=== PATIENT | male | born 1935 | race Caucasian/White ===

== ENCOUNTER 2017-03-24 11:20 | Emergency (ER) | payer MEDICARE, OTHER ==
[2017-03-24] MEDS ORDERED: NS 0.9% 1000 ML* 2,000 ML IV ONE (12:00)
[2017-03-24 12:26] LABS: Hematocrit 49 % (42-52); Hemoglobin 16.3 g/dl (14.0-18.0); Mean Corpuscular HGB Conc 34 g/dl (31-36); Mean Corpuscular Hemoglobin 30 pg (27-31); Mean Corpuscular Volume 89 fL (80-94); Mean Platelet Volume 9 um3 (7.4-10.4); Red Blood Count 5.44 10^6/ul (4.0-5.4); Red Cell Distribution Width 13 % (10.5-15); White Blood Count 4.7 10^3/ul (3.5-10.8)
[2017-03-24 12:44] LABS: ALT 16 U/L (7-52); AST 15 U/L (13-39); Albumin 4.1 g/dL (3.2-5.2); Alkaline Phosphatase 89 U/L (34-104); Anion Gap 5 mmol/L (2-11); BUN/Creatinine Ratio 18.5 (8-20); Blood Urea Nitrogen 20 mg/dL (6-24); CO2 Carbon Dioxide 30 mmol/L (22-32); Calcium 9.4 mg/dL (8.6-10.3); Chloride 104 mmol/L (101-111); EGFR African American 84.2 (>60); EGFR Non-African American 65.5 (>60); Globulin 2.4 g/dL (2-4); Glucose 119 mg/dL (70-100); Potassium 4.1 mmol/L (3.5-5.0); Sodium 139 mmol/L (133-145); Total Protein 6.5 g/dL (6.4-8.9)
[2017-03-24 12:56] LABS: Urine Bilirubin Negative (Negative); Urine Glucose Negative (Negative); Urine Nitrite Negative (Negative)
[2017-03-24] MEDS ORDERED: Iohexol 350* (CONTRAST) 500 ML MDV IV ONE (12:57)
[2017-03-24 13:00] LABS: Alcohol < 10 mg/dL (<10)
[2017-03-24 13:12] LABS: Cholesterol 109 mg/dL; HDL Cholesterol 32.5 mg/dL; LDL Cholesterol 46 mg/dL; Triglycerides 154 mg/dL
[2017-03-24] MEDS ORDERED: Metoprolol Tartrate IV* 1 MG/ML 5 ML VIAL IV ONE (13:31)
--- NOTE | 2017-03-24 13:41 | RAD ---
INDICATION: Dizziness, blurred vision and near syncope. COMPARISON: None. TECHNIQUE: Contiguous axial sections of the brain were obtained from the skull base to the vertex without contrast. FINDINGS: The ventricles, cisterns and sulci age-appropriate symmetric involutional changes. There is mild periventricular and subcortical white matter hypoattenuation. Otherwise the gastelum-white matter differentiation is adequately maintained and there is no sulcal effacement. No significant focal abnormality or mass effect is present. There is no evidence for intracranial hemorrhage. No significant focal osseous abnormality is present. The visualized portion of the paranasal sinuses and mastoid air cells appear clear. IMPRESSION: Age-appropriate involutional changes and microvascular disease without CT evidence of acute intracranial abnormality.
--- NOTE | 2017-03-24 13:57 | RAD ---
CPT II: CPT II Codes: 3100F INDICATION: Dizziness, blurred vision and ataxia COMPARISON: Same day CT of the brain that does not show any acute abnormalities. TECHNIQUE: A CT angiogram of the head and neck was performed with 80 cc of Omnipaque 350. Contiguous axial sections were obtained from the thoracic inlet through the [place]. Images were reconstructed in the sagittal, coronal planes and in a 3-D volume rendered format. The distal cervical internal carotid artery diameter is used as the denominater for stenosis measurement. CTA NECK: Right: Just below the bifurcation the common carotid artery measures 9 mm in diameter. There is coarse calcification at the proximal portion of the right internal carotid artery narrowing the lumen to 7 mm. This yields approximately 22% degree stenosis. Significant ectatic change at the proximal internal carotid artery is noted as well. Left: Just below the bifurcation the common carotid artery measures 8 mm. There is calcified atherosclerosis at the carotid bulb and the proximal internal carotid artery measures 6 mm in diameter. This corresponds to approximately 25% degree stenosis. Similar to the right there is ectatic curvature of the proximal portion of the left internal carotid artery. The left vertebral artery is diminutive relative to the right side patency is maintained up to the confluence with the basilar artery. Multilevel degenerative changes of the cervical spine include nonspecific straightening of the normal cervical lordosis, loss of intervertebral disc height, marginal osteophyte formation and uncovertebral hypertrophy. CTA of the brain: The internal carotid, anterior and middle cerebral arteries appear are patent without high grade stenosis or occlusion. The vertebral, basilar and posterior cerebral arteries appear patent without high grade stenosis or occlusion. The [place] is complete with bilateral posterior communicating arteries identified. No focal luminal filling defect, aneurysm or vascular malformation is seen. IMPRESSION: 1. 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 2. No abrupt filling defect or other acute intracranial arterial abnormality.
[2017-03-24 14:04] VITALS: BP 144/79
--- NOTE | 2017-03-24 18:38 | ED ---
I, Oh,Soohyun, scribed for Gurpreet Narayan MD on 03/24/17 at 1151 . Altered Mental Status - HPI Summary HPI Summary: This 82 y/o male presnets ot ED for intermittent confusion and increased disorientation since this morning 1000 AM. He was working on some project around the house at time of onset when he started "feeling whoozy" and increased confusion/disorientation. He reports trouble finding stuffs, remembering his tasks, and low word finding. Positive tinnitus bilat. Negative focal weakness. Pt denies room-spinning dizziness but states that he is feeling "whoozy" and near syncope. Pt decided to visit ED when he became concerned about possible memory issues. PMHx includes HTN, CAD, and PVC. Pt is currently on atenolol. Priamry care involves Dr. Kerr. - History Of Current Complaint Chief Complaint: EDAltMentalStatus Stated Complaint: DISDORIENTED, CONFUSED Time Seen by Provider: 03/24/17 11:34 Hx Obtained From: Patient, Medical Records Onset/Duration: Still Present - Allergies/Home Medications Allergies/Adverse Reactions: Allergies Allergy/AdvReac Type Severity Reaction Status Date / Time Bee Venom Allergy Swelling Verified 03/24/17 11:24 Of Face,Lips,& Throat PMH/Surg Hx/FS Hx/Imm Hx Cardiovascular History: Reports: Hx Angina - 1995-ANGIOGRAM/CENTRAL CORONARY ARTERY CLOGGED PER PT, Hx Coronary Artery Disease, Hx Hypertension - ON MEDICATION FOR, Other Cardiovascular Problems/Disorders - HISTORY OF A SKIPPED HEART BEAT GI History: Reports: Other GI Disorders - RECTAL FISTULA Musculoskeletal History: Reports: Hx Arthritis - SHOULDERS, RIGHT KNEE, Other Musculoskeletal History - RT KNEE DISCOMFORT R/T PRIOR INJURY Sensory History: Reports: Hx Cataracts - BILATERAL, Hx Contacts or Glasses - GLASSES Denies: Hx Hearing Aid Opthamlomology History: Reports: Hx Cataracts - BILATERAL, Hx Contacts or Glasses - GLASSES Psychiatric History: Reports: Hx Anxiety - NO MEDICATION FOR - Surgical History Surgery Procedure, Year, and Place: TONSILLECTOMY/CHILD. APPENDECTOMY. UMBILICAL HERNIA REPAIR/10 YRS AGO. CYST REMOVED( IN MD OFFICE). COLONOSCOPY Hx Anesthesia Reactions: No Infectious Disease History: No Infectious Disease History: Denies: Traveled Outside the [place] in Last 30 Days - Family History Known Family History: Negative: Other - negative malignant hyperthermia and adverse anesthesia reaction - Social History Alcohol Use: Occasionally Alcohol Amount: 1 BEER/WINE Q 2WKS Hx Substance Use: No Substance Use Type: Reports: None Hx Tobacco Use: No Smoking Status (MU): Never Smoked Tobacco Review of Systems Negative: Fever Positive: Other - Tinnitus Negative: Palpitations Neurological: Other - Positive for increased confusion and disorientation this morning. Positive: Syncope - near syncope. Negative: Headache All Other Systems Reviewed And Are Negative: Yes Physical Exam - Summary Physical Exam Summary: The patient is well-nourished in no acute distress and in no acute pain. The skin is warm and dry and skin color reflects adequate perfusion. HEENT: The head is normocephalic and atraumatic. The pupils are equal and reactive. The conjunctivae are clear and without drainage. Nares are patent and without drainage. Mouth reveals moist mucous membranes and the throat is without erythema and exudate. Neck is supple with full range of motion and non-tender. There are no carotid bruits. There is no neck vein distension. Respiratory: Chest is non-tender. Lungs are clear to auscultation and breath sounds are symmetrical and equal. Cardiovascular: Heart is regular rate and rhythm. There is no murmur or rub auscultated. There is no peripheral edema and pulses are symmetrical and equal. Abdomen: The abdomen is soft and non-tender. There are normal bowel sounds heard in all four quadrants and there is no organomegaly palpated. Musculoskeletal: There is no back pain noted. Extremities are non-tender with full range of motion. There is good capillary refill. There is no peripheral edema or calf tenderness elicited. no pitting edema. Neurological: Patient is alert and oriented to person, place and time. The patient has symmetrical motor strength in all four extremities. No focal weakness. Cranial nerves III-XII are grossly intact. Deep tendon reflexes are symmetrical and equal in bilat patella. Horizontal nyagtamus. No facial droops. No focal sensory. No pronatory driftt. Good urias to ankle. Normal finger to nose. visual field intact. No slurred speech. Psychiatric: The patient has an appropriate affect and does not exhibit any anxiety or depression. Triage Information Reviewed: Yes Vital Signs On Initial Exam: Initial Vitals Temp Pulse Resp BP Pulse Ox 98.1 F 60 16 169/85 99 03/24/17 11:27 03/24/17 11:27 03/24/17 11:27 03/24/17 11:27 03/24/17 11:27 Vital Signs Reviewed: Yes Diagnostics - Vital Signs Vital Signs Temp Pulse Resp BP Pulse Ox 03/24/17 11:27 98.1 F 60 16 169/85 99 - Laboratory Lab Results: Lab Results 03/24/17 03/24/17 03/24/17 Range/Units 12:20 12:20 12:20 WBC 4.7 (3.5-10.8) 10^3/ul RBC 5.44 H (4.0-5.4) 10^6/ul Hgb 16.3 (14.0-18.0) g/dl Hct 49 (42-52) % MCV 89 (80-94) fL MCH 30 (27-31) pg MCHC 34 (31-36) g/dl RDW 13 (10.5-15) % Plt Count 125 L (150-450) 10^3/ul MPV 9 (7.4-10.4) um3 Neut % (Auto) 60.8 (38-83) % Lymph % (Auto) 28.1 (25-47) % [place] % (Auto) 9.2 H (1-9) % Eos % (Auto) 1.5 (0-6) % Baso % (Auto) 0.4 (0-2) % Absolute Neuts (auto) 2.9 (1.5-7.7) 10^3/ul Absolute Lymphs (auto) 1.3 (1.0-4.8) 10^3/ul Absolute Monos (auto) 0.4 (0-0.8) 10^3/ul Absolute Eos (auto) 0.1 (0-0.6) 10^3/ul Absolute Basos (auto) 0 (0-0.2) 10^3/ul Absolute Nucleated RBC 0 10^3/ul Nucleated RBC % 0.1 INR (Anticoag Therapy) 0.93 (0.89-1.11) Sodium 139 (133-145) mmol/L Potassium 4.1 (3.5-5.0) mmol/L Chloride 104 (101-111) mmol/L Carbon Dioxide 30 (22-32) mmol/L Anion Gap 5 (2-11) mmol/L BUN 20 (6-24) mg/dL Creatinine 1.08 (0.67-1.17) mg/dL Est GFR ( Amer) 84.2 (>60) Est GFR (Non-Af Amer) 65.5 (>60) BUN/Creatinine Ratio 18.5 (8-20) Glucose 119 H (70-100) mg/dL Lactic Acid (0.5-2.0) mmol/L Calcium 9.4 (8.6-10.3) mg/dL Total Bilirubin 1.30 H (0.2-1.0) mg/dL AST 15 (13-39) U/L ALT 16 (7-52) U/L Alkaline Phosphatase 89 (34-104) U/L Troponin I 0.00 (<0.04) ng/mL Total Protein 6.5 (6.4-8.9) g/dL Albumin 4.1 (3.2-5.2) g/dL Globulin 2.4 (2-4) g/dL Albumin/Globulin Ratio 1.7 (1-3) Triglycerides 154 mg/dL Cholesterol 109 mg/dL LDL Cholesterol 46 mg/dL HDL Cholesterol 32.5 mg/dL Urine Color Urine Appearance Urine pH (5-9) Ur Specific [place] (1.010-1.030) Urine Protein (Negative) Urine Ketones (Negative) Urine Blood (Negative) Urine Nitrate (Negative) Urine Bilirubin (Negative) Urine Urobilinogen (Negative) Ur Leukocyte Esterase (Negative) Urine Glucose (Negative) Serum Alcohol < 10 (<10) mg/dL 03/24/17 03/24/17 Range/Units 12:20 12:48 WBC (3.5-10.8) 10^3/ul RBC (4.0-5.4) 10^6/ul Hgb (14.0-18.0) g/dl Hct (42-52) % MCV (80-94) fL MCH (27-31) pg MCHC (31-36) g/dl RDW (10.5-15) % Plt Count (150-450) 10^3/ul MPV (7.4-10.4) um3 Neut % (Auto) (38-83) % Lymph % (Auto) (25-47) % [place] % (Auto) (1-9) % Eos % (Auto) (0-6) % Baso % (Auto) (0-2) % Absolute Neuts (auto) (1.5-7.7) 10^3/ul Absolute Lymphs (auto) (1.0-4.8) 10^3/ul Absolute Monos (auto) (0-0.8) 10^3/ul Absolute Eos (auto) (0-0.6) 10^3/ul Absolute Basos (auto) (0-0.2) 10^3/ul Absolute Nucleated RBC 10^3/ul Nucleated RBC % INR (Anticoag Therapy) (0.89-1.11) Sodium (133-145) mmol/L Potassium (3.5-5.0) mmol/L Chloride (101-111) mmol/L Carbon Dioxide (22-32) mmol/L Anion Gap (2-11) mmol/L BUN (6-24) mg/dL Creatinine (0.67-1.17) mg/dL Est GFR ( Amer) (>60) Est GFR (Non-Af Amer) (>60) BUN/Creatinine Ratio (8-20) Glucose (70-100) mg/dL Lactic Acid 1.1 (0.5-2.0) mmol/L Calcium (8.6-10.3) mg/dL Total Bilirubin (0.2-1.0) mg/dL AST (13-39) U/L ALT (7-52) U/L Alkaline Phosphatase (34-104) U/L Troponin I (<0.04) ng/mL Total Protein (6.4-8.9) g/dL Albumin (3.2-5.2) g/dL Globulin (2-4) g/dL Albumin/Globulin Ratio (1-3) Triglycerides mg/dL Cholesterol mg/dL LDL Cholesterol mg/dL HDL Cholesterol mg/dL Urine Color Straw Urine Appearance Clear Urine pH 5.0 (5-9) Ur Specific [place] 1.005 L (1.010-1.030) Urine Protein Negative (Negative) Urine Ketones Negative (Negative) Urine Blood Negative (Negative) Urine Nitrate Negative (Negative) Urine Bilirubin Negative (Negative) Urine Urobilinogen Negative (Negative) Ur Leukocyte Esterase Negative (Negative) Urine Glucose Negative (Negative) Serum Alcohol (<10) mg/dL Result Diagrams: 03/24/17 12:20 03/24/17 12:20 Lab Statement: Any lab studies that have been ordered have been reviewed, and results considered in the medical decision making process. - CT Brain CT Interpretation: No Acute Changes - Age-appropriate involutional changes and microvascular disease without CT evidence of acute intracranial abnormality. CT Interpretation Completed By: Radiologist CTA Head CT Interpretation: Positive (See Comments) - 1. 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 2. No abrupt filling defect or other acute intracranial arterial abnormality. CT Interpretation Completed By: Radiologist - EKG 1202 Cardiac Rate: Bradycardia - 57 bpm EKG Rhythm: Sinus Bradycardia National Institutes Of Health - NIH Scale Level of Consciousness: Alert/Keenly Responsive Ask Patient the Month and His/Her Age: Both Correct Ask Pt to Open/Close Eyes and Program Manufacturing Leader/Release Non-Paretic Hand: Both Correctly Best Gaze (Only Horizontal Eye Movement): Normal Visual Field Testing: No Visual Loss Facial Paresis-Pt to Smile & Close Eyes or Grimace Symmetry: Normal/Symmetrical Motor Function - Right Arm: No Drift-Holds 10 Seconds Motor Function - Left Arm: No Drift-Holds 10 Seconds Motor Function - Right Leg: No Drift-Holds 10 Seconds Motor Function - Left Leg: No Drift-Holds 10 Seconds Limb Ataxia-Must be out of Proportion to Weakness Present: Absent Sensory (Use Pinprick to Test Arms/Legs/Trunk/Face): Normal Best Language (Describe Picture, Name Items): No Aphasia Dysarthria (Read Several Words): Normal Extinction and Inattention: No Abnormality Total Score: 0 Re-Evaluation - Re-Evaluation First Eval Re-Evaluation Time: 14:10 Comment: Pt and family members are updated with CT imaging results and blood work. Altered Mental Statu Course/Dx - Course Assessment/Plan: This 82 y/o male presents to ED for acute onset of confusion and disorientation since today AM. Pt was doing a housework around the house when he found himself trouble locating tools and remembering his tasks. Pt became concerned about possible memory issues and decided to visit ED today. He also makes vague complaints about "feeling whoozy" stating it is different from being room spinning dizziness and feeling lightheaded. Positive tinnitus bilat. Family members present bedside also expresses concern about possible word- finding difficulty. Blood work is wnl, and both CTA Head and CT Brain are noted without much acute findings. Pt was re-evaluated to see if there is any change in mental status or any concerns for code gastelum. Pt was noted with mild tremor at rest, but otherwise noted with normal finger to nose, heel to sheen, normal speech, intact cranial nerve III-XII, and without focal motor weakness. - Diagnoses Differential Diagnosis/HQI/PQRI: CVA, Hypoglycemia, Intracranial Bleed, Medication Reaction, Metabolic Disorder, TIA, Other - dehydration Discharge Diagnoses: Orthostatic hypotension, Dizziness, Meniere disease Discharge - Discharge Plan Condition: Stable Disposition: HOME Patient Education Materials: Meniere Disease (ED), Dizziness (ED) Referrals: Claudia Kerr MD [Primary Care Provider] - 2 Days The documentation as recorded by the Gavin verdugo Soohyun accurately reflects the service I personally performed and the decisions made by , Gurpreet Narayan MD.
== END 2017-03-24 14:24 | disposition home or self-care (01) ==
LOC: ED 11:20
DX: I95.1 Orthostatic hypotension (principal); H81.09 Meniere's disease, unspecified ear; R42 Dizziness and giddiness; R55 Syncope and collapse; H93.19 Tinnitus, unspecified ear
CPT/HCPCS: 36415; 70450; 70496; 70498; 80053; 80061; 80320; 81003; 83605; 84484; 85025; 85610; 93005; 96374; 99283; G0480; Q9967

== ENCOUNTER 2021-10-30 17:02 | Observation (INO) ==
[2021-10-30 19:36] LABS: ABS Eosinophils 0.1 10^3/ul (0-0.6); ABS Lymphocytes 1.6 10^3/ul (1.0-4.8); ABS Monocytes 0.3 10^3/ul (0-0.8); Eosinophil % 1.4 %; Hematocrit 43 % (42-52); Hemoglobin 15.1 g/dL (14.0-18.0); Lymphocyte % 40.1 %; Mean Corpuscular HGB Conc 35 g/dL (31-36); Mean Corpuscular Hemoglobin 32 pg (27-31); Mean Corpuscular Volume 91 fL (80-94); Mean Platelet Volume 9.2 fL (7.4-10.4); Nucleated Red Blood Cells % 0.3; Platelet Count 137 10^3/uL (150-450); Red Blood Count 4.75 10^6 /uL (4.18-5.48); Red Cell Distribution Width 14 % (10-15); White Blood Count 3.9 10^3/uL (3.5-10.8)
[2021-10-30 19:57] LABS: Albumin 4.3 g/dL (3.2-5.2); Albumin/Globulin Ratio 1.7 (1-3); Calcium 9.3 mg/dL (8.6-10.3); Globulin 2.5 g/dL (2-4); Potassium 4.1 mmol/L (3.5-5.0); Total Protein 6.8 g/dL (6.4-8.9); eGFR CKD-EPI 68.3 (>60)
[2021-10-30 19:58] LABS: Troponin I 0.01 ng/mL (<0.03)
[2021-10-31 03:23] LABS: Rapid COVID-19 Molecular Undetected (Undetected)
[2021-10-31] MEDS ORDERED: Heparin DRIP 25,000 UNITS BAG 25,000 UNITS/500 ML BAG IV SCH (04:45)
[2021-10-31] MEDS ORDERED: Heparin 5000 UNITS/ML 1 mL VIAL IV SCH (05:00)
[2021-10-31 05:07] LABS: ABS Eosinophils 0.1 10^3/ul (0-0.6); ABS Lymphocytes 1.3 10^3/ul (1.0-4.8); ABS Monocytes 0.3 10^3/ul (0-0.8); ABS Neutrophils 1.7 10^3/ul (1.5-7.7); Eosinophil % 2.2 %; Hematocrit 41 % (42-52); Lymphocyte % 38.9 %; Mean Corpuscular HGB Conc 34 g/dL (31-36); Mean Corpuscular Hemoglobin 31 pg (27-31); Mean Corpuscular Volume 92 fL (80-94); Mean Platelet Volume 8.5 fL (7.4-10.4); Platelet Count 115 10^3/uL (150-450); Red Blood Count 4.48 10^6 /uL (4.18-5.48); Red Cell Distribution Width 14 % (10-15); White Blood Count 3.3 10^3/uL (3.5-10.8)
[2021-10-31 05:23] LABS: eGFR CKD-EPI 85.2 (>60)
[2021-10-31] MEDS ORDERED: Polyethylene Glycol 3350 17 GM PACKET PO PRN (09:46)
[2021-10-31 11:35] VITALS: BP 129/85
== END 2021-10-31 16:40 | disposition home or self-care (01) ==
LOC: ED 17:02 → INTOOBSV 10-31 02:40 → SUATTDRO 10-31 02:40 → EDHOLD 10-31 02:40 → MEDTELE 10-31 06:04
PROVIDERS: ADMIT Internal Medicine; ATTEND Hospitalist

== ENCOUNTER 2024-06-20 12:48 | Inpatient (IN) ==
[2024-06-20 18:17] LABS: Hematocrit 36.9 % (38-53); Hemoglobin 12.8 g/dL (13.2-16.3); Mean Corpuscular Hemoglobin 34.4 pg (27-33); Mean Corpuscular Hgb Conc 34.7 g/dL (31-36); Mean Corpuscular Volume 99.2 fL (80-97); Platelet Count 134 10^3/uL (150-450); Red Blood Count 3.72 10^6/uL (4.06-5.63); Red Cell Distribution Width 14.9 % (12-17); White Blood Count 2.6 10^3/uL (3.6-10.2)
[2024-06-20 18:28] LABS: ABS Lymphocytes 1.4 10^3/uL (1.0-4.8); ABS Monocytes 0.1 10^3/uL (0.0-1.1); ABS Nucleated RBC 0.01 10^3/ul; Eosinophil % 0.3 %; Lymphocyte % 56.1 %; Nucleated Red Blood Cells % 0.2 %/100WBC (0.0-0.8)
[2024-06-20 18:36] LABS: Albumin 4.2 g/dL (3.2-5.2); Albumin/Globulin Ratio 1.4 (1-3); Calcium 9.3 mg/dL (8.6-10.3); Creatinine, Serum 1.01 mg/dL (0.67-1.17); Globulin 2.9 g/dL (2-4); Potassium 4.3 mmol/L (3.5-5.0); Total Bilirubin 0.9 mg/dL (0.2-1.0); Total Protein 7.1 g/dL (6.4-8.9); eGFR CKD-EPI 71.1 (>60)
[2024-06-20 18:39] LABS: INR 1.05 (0.83-1.13)
[2024-06-20 18:52] LABS: TSH Ultra Thyroid Stim Horm 2.27 mcIU/mL (0.34-5.60)
[2024-06-20 18:54] LABS: Free T4 0.76 ng/dL (0.61-1.12)
[2024-06-20] MEDS: Iohexol 350 (CONTRAST) 500 ML MDV IV ONE (19:06)
[2024-06-20 20:14] LABS: High Sensitivity Troponin 1 Hr 6 pg/mL (<20)
[2024-06-20] MEDS: Lactated Ringers 1000 ml BAG 1,000 ML IV ONE (21:19)
[2024-06-20 22:50] LABS: Urine Appearance Clear; Urine Bilirubin Negative (Negative); Urine Blood Negative (Negative); Urine Color Light-Yellow; Urine Glucose Negative (Negative); Urine Ketones Negative (Negative); Urine Nitrite Negative (Negative); Urine Protein Negative (Negative); Urine Specific Gravity 1.022 (1.002-1.030); Urine Urobilinogen Negative (Negative); Urine pH 5.5 (5.0-8.0)
[2024-06-21] MEDS: NS 0.9% 500 ml BAG 500 ML IV ONE ×2 (01:59→11:45)
[2024-06-21] MEDS: Enoxaparin 40 MG/0.4 ML SYR SUBCUT SCH (02:01)
[2024-06-21 05:08] LABS: Hematocrit 28.1 % (38-53); Hemoglobin 9.7 g/dL (13.2-16.3); Mean Corpuscular Hemoglobin 34.3 pg (27-33); Mean Corpuscular Hgb Conc 34.6 g/dL (31-36); Mean Corpuscular Volume 99.1 fL (80-97); Mean Platelet Volume 8.5 fL (7.5-11.2); Platelet Count 105 10^3/uL (150-450); Red Blood Count 2.84 10^6/uL (4.06-5.63); White Blood Count 1.9 10^3/uL (3.6-10.2)
[2024-06-21] MEDS: Isosorbide Mononit ER 30mg TAB PO SCH (08:54)
[2024-06-21] MEDS: Aspirin EC 81 mg TAB.EC (enteric coated) PO SCH (08:55)
[2024-06-22 06:42] LABS: Hematocrit 32.6 % (38-53); Hemoglobin 11.5 g/dL (13.2-16.3); Mean Corpuscular Hemoglobin 34.8 pg (27-33); Mean Corpuscular Hgb Conc 35.2 g/dL (31-36); Mean Corpuscular Volume 98.7 fL (80-97); Mean Platelet Volume 8.8 fL (7.5-11.2); Platelet Count 102 10^3/uL (150-450); Red Cell Distribution Width 14.9 % (12-17); White Blood Count 1.8 10^3/uL (3.6-10.2)
[2024-06-22 06:53] LABS: Calcium 8.4 mg/dL (8.6-10.3); Creatinine, Serum 0.9 mg/dL (0.67-1.17); Potassium 3.9 mmol/L (3.5-5.0); eGFR CKD-EPI 81.6 (>60)
[2024-06-22 08:06] LABS: ABS Lymphocytes 1.1 10^3/uL (1.0-4.8); ABS Monocytes 0.1 10^3/uL (0.0-1.1); ABS Neutrophils 0.6 10^3/uL (1.5-7.6); ABS Nucleated RBC 0.01 10^3/ul; Eosinophil % 0.3 %; Lymphocyte % 60.7 %; Nucleated Red Blood Cells % 0.4 %/100WBC (0.0-0.8)
[2024-06-22] MEDS: Polyethylene Glycol 3350 17 GM PACKET PO PRN (09:20)
[2024-06-22] MEDS: Sulfur Hexaflouride MICROSPHR 25 MG VIAL IV ONE (09:49)
[2024-06-23 06:21] LABS: Hematocrit 33.2 % (38-53); Hemoglobin 11.4 g/dL (13.2-16.3); Mean Corpuscular Hemoglobin 33.8 pg (27-33); Mean Corpuscular Hgb Conc 34.2 g/dL (31-36); Mean Corpuscular Volume 98.8 fL (80-97); Mean Platelet Volume 8.4 fL (7.5-11.2); Platelet Count 110 10^3/uL (150-450); Red Blood Count 3.36 10^6/uL (4.06-5.63); Red Cell Distribution Width 15.1 % (12-17); White Blood Count 2.1 10^3/uL (3.6-10.2)
[2024-06-23 06:42] LABS: ABS Lymphocytes 1.3 10^3/uL (1.0-4.8); ABS Monocytes 0.1 10^3/uL (0.0-1.1); ABS Neutrophils 0.7 10^3/uL (1.5-7.6); ABS Nucleated RBC 0.01 10^3/ul; Eosinophil % 0.4 %; Lymphocyte % 62.3 %; Nucleated Red Blood Cells % 0.2 %/100WBC (0.0-0.8)
[2024-06-23 06:58] LABS: Calcium 8.5 mg/dL (8.6-10.3); Creatinine, Serum 0.94 mg/dL (0.67-1.17); Potassium 3.9 mmol/L (3.5-5.0); eGFR CKD-EPI 77.5 (>60)
[2024-06-23] MEDS ORDERED: Aminophylline 25 MG/ML VIAL ONE (14:59)
[2024-06-23] MEDS ORDERED: Regadenoson 0.4 MG/5 ML SYRINGE ONE (14:59)
[2024-06-23] MEDS: Aspirin EC 81 mg TAB.EC (enteric coated) PO SCH (21:37)
[2024-06-24 01:00] LABS: Osmolality Serum 295 mOsm/kg (275-295)
[2024-06-24 05:20] LABS: Hematocrit 34.5 % (38-53); Hemoglobin 11.8 g/dL (13.2-16.3); Mean Corpuscular Hemoglobin 33.7 pg (27-33); Mean Platelet Volume 8.6 fL (7.5-11.2); Platelet Count 114 10^3/uL (150-450); Red Blood Count 3.49 10^6/uL (4.06-5.63); White Blood Count 2.1 10^3/uL (3.6-10.2)
[2024-06-24 05:40] LABS: Calcium 8.7 mg/dL (8.6-10.3); Creatinine, Serum 0.81 mg/dL (0.67-1.17); eGFR CKD-EPI 84.3 (>60)
[2024-06-24 07:53] LABS: ABS Lymphocytes 1.2 10^3/uL (1.0-4.8); ABS Monocytes 0.1 10^3/uL (0.0-1.1); ABS Neutrophils 0.8 10^3/uL (1.5-7.6); Eosinophil % 0.7 %; Lymphocyte % 55.1 %; Nucleated Red Blood Cells % 0.1 %/100WBC (0.0-0.8)
[2024-06-24] MEDS ORDERED: Naloxone 0.4 mg VIAL 0.4 mg/ml 1 ml VIAL IV PUSH PRN (10:44)
[2024-06-24] MEDS ORDERED: Flumazenil 0.5 mg/5 ml 0.1 MG/ML 5 ml VIAL IV PRN (10:44)
[2024-06-24] MEDS ORDERED: fentaNYL 100 mcg/2 ml 50 MCG/ML VIAL ONE (10:54)
[2024-06-24] MEDS ORDERED: Midazolam 5 mg/5 ml VIAL 1 mg/ml 5 ml VIAL (5 mg) ONE (10:54)
[2024-06-24] MEDS ORDERED: Heparin 1,000 UNIT/ML 10 ml (10,000 UNITS) CATHLAB/DIALYSIS ONE (10:54)
[2024-06-24] MEDS ORDERED: Heparin 2 UNITS/ML 1000 mls 2,000 ML IV ONE (10:55)
[2024-06-24] MEDS ORDERED: Iohexol 350 (CONTRAST) 200 ML MDV IV ONE (10:55)
[2024-06-24] MEDS ORDERED: Lidocaine 1% MPF 5 ML VIAL ONE (10:55)
[2024-06-24] MEDS ORDERED: nitroGLYCERIN DRIP 25,000 MCG/250 ML BTL ONE (10:55)
[2024-06-24] MEDS ORDERED: niCARdipine 0.1MG/ML IVPREMIX 20 MG/200 ML BAG IV ONE (10:55)
[2024-06-24] MEDS: fentaNYL 100 mcg/2 ml 50 MCG/ML VIAL IV SLOW PU ONE (11:53)
[2024-06-24] MEDS: Midazolam 10 mg/10 ml VIAL 1 mg/ml 10 ml VIAL (10 mg) IV SLOW PU ONE (11:53)
[2024-06-25 06:19] LABS: Hematocrit 32.6 % (38-53); Hemoglobin 11.4 g/dL (13.2-16.3); Mean Corpuscular Hemoglobin 34.3 pg (27-33); Mean Corpuscular Hgb Conc 34.9 g/dL (31-36); Mean Corpuscular Volume 98.3 fL (80-97); Mean Platelet Volume 8.8 fL (7.5-11.2); Platelet Count 106 10^3/uL (150-450); Red Blood Count 3.32 10^6/uL (4.06-5.63); Red Cell Distribution Width 14.7 % (12-17); White Blood Count 2.4 10^3/uL (3.6-10.2)
[2024-06-25 06:25] LABS: ABS Lymphocytes 1.4 10^3/uL (1.0-4.8); ABS Monocytes 0.1 10^3/uL (0.0-1.1); ABS Neutrophils 0.9 10^3/uL (1.5-7.6); Eosinophil % 0.4 %; Nucleated Red Blood Cells % 0.2 %/100WBC (0.0-0.8)
[2024-06-25 06:59] LABS: Calcium 8.5 mg/dL (8.6-10.3); Creatinine, Serum 0.76 mg/dL (0.67-1.17); eGFR CKD-EPI 85.9 (>60)
[2024-06-25 07:54] VITALS: BP 123/81
== END 2024-06-25 08:38 | disposition short-term general hospital (02) | DRG 287 ==
LOC: EDHOLD 12:48 → ED 12:48 → SUATTDRO 06-21 00:37 → MEDTELE 06-21 09:45
PROVIDERS: ADMIT Student in an Organized Health Care Education/Training Program; ATTEND Internal Medicine

== ENCOUNTER 2024-09-04 23:10 | Inpatient (IN) ==
[2024-09-05 06:18] LABS: Hematocrit 22.3 % (38-53); Hemoglobin 7.6 g/dL (13.2-16.3); Mean Corpuscular Hemoglobin 33.4 pg (27-33); Mean Corpuscular Hgb Conc 34.2 g/dL (31-36); Mean Corpuscular Volume 97.5 fL (80-97); Mean Platelet Volume 8.3 fL (7.5-11.2); Platelet Count 138 10^3/uL (150-450); Red Blood Count 2.29 10^6/uL (4.06-5.63); Red Cell Distribution Width 20.1 % (12-17)
[2024-09-05 06:48] LABS: Albumin 2.9 g/dL (3.2-5.2); C Reactive Protein 80.55 mg/L (<8.01); Calcium 7.9 mg/dL (8.6-10.3); Creatinine, Serum 0.82 mg/dL (0.67-1.17); Potassium 3.8 mmol/L (3.5-5.0); Total Bilirubin 0.7 mg/dL (0.2-1.0); Total Protein 5.9 g/dL (6.4-8.9)
[2024-09-05] MEDS: Iohexol 350 (CONTRAST) 500 ML MDV IV ONE (07:01)
[2024-09-05 07:48] LABS: ABS Monocytes 0.1 10^3/uL (0.0-1.1); ABS Neutrophils 0.9 10^3/uL (1.5-7.6); Eosinophil % 0.7 %; Nucleated Red Blood Cells % 0.2 %/100WBC (0.0-0.8)
[2024-09-05 08:20] LABS: Urine Appearance Extra Turbid; Urine Bilirubin Negative (Negative); Urine Blood 1+ (Negative); Urine Color Yellow; Urine Glucose Negative (Negative); Urine Ketones Negative (Negative); Urine Nitrite Negative (Negative); Urine Protein 1+ (>=30 mg/dL) (Negative); Urine Specific Gravity 1.023 (1.002-1.030); Urine Urobilinogen Negative (Negative); Urine pH 5.5 (5.0-8.0)
[2024-09-05 08:40] LABS: Urine Bacteria Absent /HPF (Absent); Urine Red Blood Cell 1+(3-5/hpf) /HPF (0-Trace); Urine White Blood Cell 1+(6-10/hpf) /HPF (0-Trace)
[2024-09-05] MEDS: Pantoprazole VIAL 40 MG VIAL IV ONE (10:53)
[2024-09-05 11:04] LABS: Hemoglobin 7.7 g/dL (13.2-16.3); Mean Corpuscular Hgb Conc 33.7 g/dL (31-36); Mean Corpuscular Volume 98.1 fL (80-97); Mean Platelet Volume 8.5 fL (7.5-11.2); Platelet Count 137 10^3/uL (150-450); Red Blood Count 2.34 10^6/uL (4.06-5.63); Red Cell Distribution Width 20.4 % (12-17); White Blood Count 1.8 10^3/uL (3.6-10.2)
[2024-09-05 11:09] LABS: ABS Lymphocytes 1.1 10^3/uL (1.0-4.8); ABS Monocytes 0.1 10^3/uL (0.0-1.1); ABS Neutrophils 0.6 10^3/uL (1.5-7.6); ABS Nucleated RBC 0.01 10^3/ul; Eosinophil % 0.6 %; Lymphocyte % 59.5 %; Nucleated Red Blood Cells % 0.5 %/100WBC (0.0-0.8)
[2024-09-05] MEDS: Piperacillin/Tazobac 3.375 BAG 3.375 GM/100 ML BAG IV ONE (11:52)
[2024-09-05] MEDS ORDERED: Zosyn per Pharmacy NOTE FOLLOW UP SCH (12:00)
[2024-09-05] MEDS ORDERED: Magnesium Hydroxide LIQ 30 ML UDC PO PRN (12:19)
[2024-09-05] MEDS: Aspirin EC 81 mg TAB.EC (enteric coated) PO SCH (13:52)
[2024-09-05 14:05] LABS: TSH Ultra Thyroid Stim Horm 0.6 mcIU/mL (0.34-5.60)
[2024-09-05 14:16] LABS: Folate 18.15 ng/mL (5.90-24.80)
[2024-09-05 14:25] LABS: Ferritin 243.2 ng/mL (24-336)
[2024-09-05] MEDS: ZOSYN 3.375 GM Q8H per EXTENDED INFUSION IV SCH (16:42)
[2024-09-05 19:53] LABS: Hematocrit 24.7 % (38-53); Hemoglobin 8.4 g/dL (13.2-16.3)
[2024-09-05] MEDS: Pantoprazole VIAL 40 MG VIAL IV SCH (20:19)
[2024-09-05 21:29] LABS: Immature Retic Fraction 0.54
[2024-09-05 21:35] LABS: Corrected Retic Count 0.7 % (0.5-2.2); RBC Retic Count 2.34 10^6/ul (4.06-5.63)
[2024-09-06 07:56] LABS: Calcium 7.7 mg/dL (8.6-10.3); Creatinine, Serum 0.99 mg/dL (0.67-1.17); eGFR CKD-EPI 72.8 (>60)
[2024-09-06] MEDS: Polyethylene Glycol 3350 17 GM PACKET PO SCH (08:16)
[2024-09-06] MEDS: Isosorbide Mononit ER 30mg TAB PO SCH (08:17)
[2024-09-06 08:49] LABS: Hematocrit 24.3 % (38-53); Hemoglobin 8.3 g/dL (13.2-16.3); Mean Corpuscular Hemoglobin 32.6 pg (27-33); Mean Corpuscular Hgb Conc 34.4 g/dL (31-36); Mean Corpuscular Volume 94.7 fL (80-97); Mean Platelet Volume 8.7 fL (7.5-11.2); Platelet Count 136 10^3/uL (150-450); Red Blood Count 2.56 10^6/uL (4.06-5.63); Red Cell Distribution Width 20.5 % (12-17); White Blood Count 1.5 10^3/uL (3.6-10.2)
[2024-09-06] MEDS ORDERED: Sulfur Hexaflouride MICROSPHR 25 MG VIAL IV PRN (09:04)
[2024-09-06 09:23] LABS: ABS Monocytes 0.1 10^3/uL (0.0-1.1); ABS Neutrophils 0.4 10^3/uL (1.5-7.6); ABS Nucleated RBC 0.01 10^3/ul; Eosinophil % 0.9 %; Lymphocyte % 68.3 %; Nucleated Red Blood Cells % 0.4 %/100WBC (0.0-0.8)
[2024-09-06 13:37] LABS: Hematocrit 23.6 % (38-53); Hemoglobin 7.9 g/dL (13.2-16.3)
[2024-09-06 18:16] LABS: Hematocrit 23.7 % (38-53); Mean Corpuscular Hemoglobin 32.2 pg (27-33); Mean Corpuscular Hgb Conc 33.7 g/dL (31-36); Mean Corpuscular Volume 95.4 fL (80-97); Mean Platelet Volume 8.2 fL (7.5-11.2); Platelet Count 142 10^3/uL (150-450); Red Blood Count 2.48 10^6/uL (4.06-5.63); Red Cell Distribution Width 20.2 % (12-17); White Blood Count 1.6 10^3/uL (3.6-10.2)
[2024-09-06 18:46] LABS: ABS Lymphocytes 1.1 10^3/uL (1.0-4.8); ABS Monocytes 0.1 10^3/uL (0.0-1.1); ABS Neutrophils 0.5 10^3/uL (1.5-7.6); ABS Nucleated RBC 0.01 10^3/ul; Eosinophil % 0.9 %; Lymphocyte % 67.2 %; Nucleated Red Blood Cells % 0.4 %/100WBC (0.0-0.8)
[2024-09-07 05:48] LABS: Hematocrit 23.3 % (38-53); Hemoglobin 7.8 g/dL (13.2-16.3); Mean Corpuscular Hemoglobin 31.7 pg (27-33); Mean Corpuscular Hgb Conc 33.5 g/dL (31-36); Mean Corpuscular Volume 94.7 fL (80-97); Mean Platelet Volume 8.1 fL (7.5-11.2); Platelet Count 131 10^3/uL (150-450); Red Blood Count 2.46 10^6/uL (4.06-5.63); Red Cell Distribution Width 20.2 % (12-17); White Blood Count 1.4 10^3/uL (3.6-10.2)
[2024-09-07 06:11] LABS: ABS Lymphocytes 0.9 10^3/uL (1.0-4.8); ABS Neutrophils 0.4 10^3/uL (1.5-7.6); Eosinophil % 0.6 %; Lymphocyte % 67.8 %
[2024-09-07 06:27] LABS: Calcium 7.7 mg/dL (8.6-10.3); Creatinine, Serum 1.04 mg/dL (0.67-1.17); Magnesium 1.9 mg/dL (1.9-2.7); Potassium 3.7 mmol/L (3.5-5.0); eGFR CKD-EPI 68.6 (>60)
[2024-09-07] MEDS: Magnesium Sulfate 2 gm BAG 2 GM/50 ML BAG IVPB ONE (09:28)
[2024-09-07 18:39] LABS: Hematocrit 26.8 % (38-53); Mean Corpuscular Hgb Conc 33.5 g/dL (31-36); Mean Corpuscular Volume 95.6 fL (80-97); Mean Platelet Volume 8.1 fL (7.5-11.2); Platelet Count 144 10^3/uL (150-450); Red Cell Distribution Width 19.7 % (12-17); White Blood Count 1.7 10^3/uL (3.6-10.2)
[2024-09-08 05:24] LABS: Hematocrit 24.8 % (38-53); Hemoglobin 8.6 g/dL (13.2-16.3); Mean Corpuscular Hemoglobin 32.8 pg (27-33); Mean Corpuscular Hgb Conc 34.5 g/dL (31-36); Mean Corpuscular Volume 95.1 fL (80-97); Mean Platelet Volume 8.1 fL (7.5-11.2); Platelet Count 135 10^3/uL (150-450); White Blood Count 1.6 10^3/uL (3.6-10.2)
[2024-09-08 05:48] LABS: Albumin 2.9 g/dL (3.2-5.2); Calcium 7.7 mg/dL (8.6-10.3); Creatinine, Serum 1.02 mg/dL (0.67-1.17); Globulin 2.8 g/dL (2-4); Potassium 3.7 mmol/L (3.5-5.0); Total Bilirubin 0.6 mg/dL (0.2-1.0); Total Protein 5.7 g/dL (6.4-8.9); eGFR CKD-EPI 70.3 (>60)
[2024-09-08 10:24] VITALS: BP 125/79
[2024-09-08 10:57] LABS: ABS Monocytes 0.1 10^3/uL (0.0-1.1); ABS Neutrophils 0.5 10^3/uL (1.5-7.6); Lymphocyte % 65.3 %
[2024-09-09 19:05] LABS: Anaplasma phagocytophilum Negative (Negative); B. miyamotoi PCR, B Negative (Negative); Babesia divergens/MO-1 Negative (Negative); Babesia ducani Negative (Negative); Ehrlichia chaffeensis Negative (Negative); Ehrlichia ewingii/canis Negative (Negative); Ehrlichia muris eauclairensis Negative (Negative)
== END 2024-09-08 12:08 | disposition home or self-care (01) | DRG 812 ==
LOC: EDHOLD 23:10 → ED 23:10 → SUATTDRO 09-05 10:33 → SSU 09-05 11:44
PROVIDERS: ADMIT Student in an Organized Health Care Education/Training Program; ATTEND Internal Medicine
PROC: O.GIEGD (2024-09-07 14:05)

== ENCOUNTER 2024-12-07 23:00 | Observation (INO) ==
[2024-12-07 23:33] LABS: INR 1.06 (0.85-1.14)
[2024-12-07 23:37] LABS: Hematocrit 30.3 % (38-53); Hemoglobin 10.2 g/dL (13.2-16.3); Mean Corpuscular Hemoglobin 34.6 pg (27-33); Mean Corpuscular Hgb Conc 33.6 g/dL (31-36); Mean Corpuscular Volume 102.8 fL (80-97); Mean Platelet Volume 9.6 fL (7.5-11.2); Platelet Count 106 10^3/uL (150-450); Red Blood Count 2.94 10^6/uL (4.06-5.63); Red Cell Distribution Width 17.8 % (12-17); White Blood Count 1.1 10^3/uL (3.6-10.2)
[2024-12-08 00:08] LABS: Albumin 3.8 g/dL (3.5-5.7); Albumin/Globulin Ratio 2.5 (1-3); Calcium 8.6 mg/dL (8.6-10.3); Creatinine, Serum 1.13 mg/dL (0.67-1.17); Globulin 1.5 g/dL (2-4); Potassium 4.1 mmol/L (3.5-5.0); Total Bilirubin 0.6 mg/dL (0.2-1.0); Total Protein 5.3 g/dL (6.4-8.9); eGFR CKD-EPI 62.1 (>60)
[2024-12-08 01:10] LABS: ABS Lymphocytes 0.3 10^3/uL (1.0-4.8); ABS Neutrophils 0.8 10^3/uL (1.5-7.6); ABS Nucleated RBC 0.01 10^3/ul; Lymphocyte % 27.5 %; Nucleated Red Blood Cells % 0.5 %/100WBC (0.0-0.8)
[2024-12-08 01:22] LABS: High Sensitivity Troponin 1 Hr 57 pg/mL (<20)
[2024-12-08] MEDS: NS 0.9% 1000 ml BAG 1,000 ML IV SCH (04:32)
[2024-12-08] MEDS ORDERED: Polyethylene Glycol 3350 17 GM PACKET PO PRN (04:35)
[2024-12-08] MEDS ORDERED: Magnesium Hydroxide LIQ 30 ML UDC PO PRN (04:35)
[2024-12-08 04:40] LABS: Urine Appearance No Cx Clear (Clear); Urine Bilirubin No Culture Negative (Negative); Urine Blood No Culture Negative (Negative); Urine Color No Culture Light-Yellow; Urine Glucose No Culture 4+ (>=1000 mg/dL) (Negative); Urine Ketones No Culture Negative (Negative); Urine Leukocytes No Culture Negative Leu/uL (Negative); Urine Nitrite No Culture Negative (Negative); Urine Protein No Culture Negative (Negative); Urine Specific Gravity No Cx 1.021 (1.002-1.030); Urine Urobilinogen No Cx Negative (Negative); Urine pH No Culture 5.5 (5.0-8.0)
[2024-12-08 04:44] LABS: Urine Bacteria No Culture Absent /HPF (Absent); Urine Red Blood Cell No Cult Absent /HPF (0-Trace); Urine White Blood Cell No Cult Absent /HPF (0-Trace)
[2024-12-08 07:28] LABS: ABS Lymphocytes 0.6 10^3/uL (1.0-4.8); ABS Neutrophils 1.2 10^3/uL (1.5-7.6); Hematocrit 28.8 % (38-53); Lymphocyte % 33.1 %; Mean Corpuscular Hemoglobin 35.7 pg (27-33); Mean Corpuscular Hgb Conc 34.7 g/dL (31-36); Mean Corpuscular Volume 102.9 fL (80-97); Mean Platelet Volume 9.4 fL (7.5-11.2); Nucleated Red Blood Cells % 0.1 %/100WBC (0.0-0.8); Platelet Count 110 10^3/uL (150-450); Red Cell Distribution Width 18.1 % (12-17); White Blood Count 1.9 10^3/uL (3.6-10.2)
[2024-12-08 07:55] LABS: High Sensitivity Troponin 3 Hr 590 pg/mL (<20)
[2024-12-08 08:02] LABS: Calcium 8.5 mg/dL (8.6-10.3); Creatinine, Serum 1.05 mg/dL (0.67-1.17); Potassium 4.4 mmol/L (3.5-5.0); eGFR CKD-EPI 67.9 (>60)
[2024-12-08] MEDS: Sulfur Hexaflouride MICROSPHR 25 MG VIAL IV PRN (08:29)
[2024-12-08] MEDS ORDERED: Regadenoson 0.4 MG/5 ML SYRINGE ONE (09:08)
[2024-12-08] MEDS ORDERED: Aminophylline 25 MG/ML VIAL ONE (09:08)
[2024-12-08] MEDS: Aspirin EC 81 mg TAB.EC (enteric coated) PO SCH (11:15)
[2024-12-08] MEDS: Heparin 5000 UNITS/ML 1 mL VIAL SUBCUT SCH (11:16)
[2024-12-08 13:15] VITALS: BP 144/83
[2024-12-09] MEDS ORDERED: Sulfamethox/Trimethoprim DS TAB 800/160 mg PO SCH (09:00)
== END 2024-12-08 14:32 | disposition home or self-care (01) ==
LOC: EDHOLD 23:00 → ED 23:00 → SUATTDRO 12-08 02:48 → MEDTELE 12-08 12:40
PROVIDERS: ADMIT Internal Medicine; ATTEND Internal Medicine